=== PATIENT | male | born 1940 | race Caucasian/White ===

== ENCOUNTER 2018-03-16 15:42 | Inpatient (IN) | payer MEDICARE ==
[2018-03-16 15:42] VITALS: PULSE 88
[2018-03-16 16:49] LABS: BASO # 0.1 K/uL (0.0-0.2); EOS # 0.4 K/uL (0.0-0.7); EOS % 4.3 % (0.0-4.0); HEMOGLOBIN 13.1 g/dL (12.0-18.0); LYMPH # 2.1 K/uL (1.0-4.3); LYMPH % 23.9 % (20.0-40.0); MEAN CELL VOLUME 73.5 fL (80.0-94.0); MEAN CORPUSCULAR HEMOGLOBIN 24.7 pg (27.0-31.0); MEAN CORPUSCULAR HGB CONC 33.6 g/dL (33.0-37.0); MEAN PLATELET VOLUME 8.8 fL (7.2-11.7); MONO # 0.7 K/uL (0.0-0.8); NEUT # 5.4 K/uL (1.8-7.0); NEUT % 62.8 % (50.0-75.0); NRBC % 0.1 % (0.0-2.0); RBC 5.31 Mil/uL (4.40-5.90); RED CELL DISTRIBUTION WIDTH 18.7 % (11.5-14.5); WHITE BLOOD COUNT 8.6 K/uL (4.8-10.8)
[2018-03-16 17:01] LABS: ALB/GLOB RATIO 0.9 (1.0-2.1); ALBUMIN 4.3 g/dL (3.5-5.0); CALCIUM 9.4 mg/dl (8.6-10.4)
[2018-03-16 17:03] LABS: INR 1.1; PROTHROMBIN TIME 12.3 SECONDS (9.7-12.2)
[2018-03-16 17:20] LABS: TROPONIN I 0.133 ng/mL (0.00-0.120)
[2018-03-16] MEDS ORDERED: Enoxaparin 40 mg Syringe SC STA (17:22)
[2018-03-16] MEDS ORDERED: Aspirin 325 mg EC Tablets PO STA (17:26)
--- NOTE | 2018-03-16 17:28 | C.PDOC ---
History Of Present Illness 77 y/o male presents to the ER with complaining of failure to thrive at home. Patient has been referred by his PMD, Dr. Neena Constantino. Patient states hat he has a dry, non-productive cough. He feels weak and tired and he is not sleeping well. Time Seen by Provider: 03/16/18 16:10 Chief Complaint (Nursing): Flu-like Symptoms History Per: Patient History/Exam Limitations: no limitations Onset/Duration Of Symptoms: Days Current Symptoms Are (Timing): Still Present Severity: Moderate Past Medical History Reviewed: Historical Data, Nursing Documentation, Vital Signs Vital Signs: Last Vital Signs Temp 98.6 F 03/16/18 18:27 Pulse 60 03/16/18 18:27 Resp 16 03/16/18 18:27 BP 129/78 03/16/18 18:27 Pulse Ox 98 03/16/18 18:27 - Medical History PMH: Gastrointestinal Ulcer, HTN Denies: Chronic Kidney Disease Surgical History: Coronary Stent Denies: Pacemaker - [facility] Procedures CORONAR ARTERIOGR-2 CATH (06/17/12) EXCISION OF DESCENDING COLON, ENDO, DIAGN (02/02/16) EXCISION OF STOMACH, ENDO, DIAGN (02/02/16) INSERTION OF ONE VASCULAR STENT (06/17/12) INSRT OF DRUG-ELUTING CORON ARTERY STENTS(S) (06/17/12) PERCUTANEOUS TRANSLUMINAL CORONARY ANGIOPLASTY [PTCA] (06/17/12) PROCEDURE ON SINGLE VESSEL (06/17/12) RT & LT HEART ANGIOCARD (06/17/12) RT/LEFT HEART CARD CATH (06/17/12) TRANSFUSE NONAUT RED BLOOD CELLS IN PERIPH VEIN, PERC (02/07/16) Family History: States: No Known Family Hx - Social History Hx Alcohol Use: No Hx Substance Use: No - Immunization History Hx Tetanus Toxoid Vaccination: No Hx Influenza Vaccination: Yes (11/2017) Hx Pneumococcal Vaccination: No Review Of Systems Except As Marked, All Systems Reviewed And Found Negative. Constitutional: Positive for: Weakness. Negative for: Fever, Chills Cardiovascular: Negative for: Chest Pain Respiratory: Positive for: Cough. Negative for: Shortness of Breath Physical Exam - Physical Exam Appears: Non-toxic, No Acute Distress, Other (elderly male, appears younger than age) Skin: Normal Color, Warm Head: Atraumatic, Normacephalic Eye(s): bilateral: Normal Inspection Ear(s): Bilateral: Normal Nose: Normal Oral Mucosa: Moist Throat: Normal, No Erythema, No Exudate Neck: Supple Chest: Symmetrical Cardiovascular: Rhythm Regular Respiratory: Normal Breath Sounds, No Rales, No Rhonchi, No Wheezing Gastrointestinal/Abdominal: Normal Exam, Soft, No Tenderness Extremity: Normal ROM, No Pedal Edema Neurological/Psych: Oriented x3, Normal Speech ED Course And Treatment - Laboratory Results Result Diagrams: 03/16/18 16:40 03/16/18 16:40 Lab Interpretation: Abnormal (d-dimer 2900, trop 0.133 H) ECG: Interpreted By Me ECG Rhythm: Sinus Rhythm, R BBB, L BBB ECG Interpretation: No Changes From Prior Rate From EC O2 Sat by Pulse Oximetry: 96 (RA) Pulse Ox Interpretation: Normal - Radiology CXR: Interpreted by Me CXR Interpretation: Yes: No Acute Disease Progress Note: lovenox SQ, ASA Reevaluation Time: 17:26 Reassessment Condition: Improved - Physician Consult Information Outcome Of Conversation: 1630, 1730, d/w Dr. Champ Constantino, ok to admit. Consider VQ scan in pt with elev d-dimer and sob, but creat 1.7 too high for angiography Disposition Doctor Will See Patient In The: Hospital Counseled Patient/Family Regarding: Studies Performed, Diagnosis - Disposition Disposition: HOSPITALIZED Disposition Time: 17:27 Condition: GOOD - Clinical Impression Clinical Impression: Shortness of breath - Scribe Statement The provider has reviewed the documentation as recorded by the Devika Guallpa Provider Attestation: All medical record entries made by the Devika were at my direction and personally dictated by me. I have reviewed the chart and agree that the record accurately reflects my personal performance of the history, physical exam, medical decision making, and the department course for this patient. I have also personally directed, reviewed, and agree with the discharge instructions and disposition.
[2018-03-16] MEDS ORDERED: Enoxaparin 80 mg Syringe ONE (17:38)
--- NOTE | 2018-03-16 17:38 | RAD ---
PROCEDURE: CHEST RADIOGRAPH, 1 VIEW HISTORY: SOB COMPARISON: Chest radiographs 12/17/2015. FINDINGS: LUNGS: Clear. PLEURA: No pneumothorax or pleural fluid seen. Mammillation of the right hemidiaphragm is reiterated. CARDIOVASCULAR: Normal. OSSEOUS STRUCTURES: No significant abnormalities. VISUALIZED UPPER ABDOMEN: Normal. OTHER FINDINGS: None. IMPRESSION: No interval acute cardiopulmonary disease appreciated.
[2018-03-16] MEDS ORDERED: Aspirin 325 mg EC Tablets PO ONE (17:41)
[2018-03-16] MEDS ORDERED: Potassium Chloride 20 mEq ER Tab PO STA ×2 (18:04→21:08)
[2018-03-16] MEDS ORDERED: Potassium Chloride 20 mEq ER Tab PO ONE (18:09)
--- NOTE | 2018-03-16 18:25 | CP.PCM.HP ---
Past Patient History - Infectious Disease Hx of Infectious Diseases: None - Past Medical History & Family History Past Medical History?: Yes - Past Social History Smoking Status: Never Smoked - CARDIAC Hx Hypertension: Yes Hx Pacemaker: No - PULMONARY Hx Respiratory Disorders: No - NEUROLOGICAL Hx Paralysis: No - HEENT Hx HEENT Problems: No - RENAL Hx Chronic Kidney Disease: No - ENDOCRINE/METABOLIC Hx Endocrine Disorders: Yes Hx Diabetes Mellitus Type 2: Yes - HEMATOLOGICAL/ONCOLOGICAL Hx Blood Transfusions: No Hx Blood Transfusion Reaction: No - INTEGUMENTARY Hx Dermatological Problems: No - MUSCULOSKELETAL/RHEUMATOLOGICAL Hx Falls: No - GASTROINTESTINAL Hx Gastrointestinal Disorders: Yes Other/Comment: COLONOSCOPY - GENITOURINARY/GYNECOLOGICAL Hx Genitourinary Disorders: No - PSYCHIATRIC Hx Substance Use: No - SURGICAL HISTORY Hx Coronary Stent: Yes - ANESTHESIA Hx Anesthesia: Yes Hx Anesthesia Reactions: No Hx Malignant Hyperthermia: No Meds Allergies/Adverse Reactions: Allergies Allergy/AdvReac Type Severity Reaction Status Date / Time No Known Allergies Allergy Verified 03/16/18 16:02 Physical Exam - Constitutional Appears: Well - Head Exam Head Exam: ATRAUMATIC, NORMAL INSPECTION, NORMOCEPHALIC - Eye Exam Eye Exam: EOMI, Normal appearance, PERRL Pupil Exam: NORMAL ACCOMODATION, PERRL - ENT Exam ENT Exam: Mucous Membranes Moist, Normal Exam - Neck Exam Neck exam: Positive for: Normal Inspection - Respiratory Exam Respiratory Exam: Decreased Breath Sounds - Cardiovascular Exam Cardiovascular Exam: REGULAR RHYTHM, +S1, +S2 - GI/Abdominal Exam GI & Abdominal Exam: Diminished Bowel Sounds, Soft - Rectal Exam Rectal Exam: Deferred Results - Vital Signs Recent Vital Signs: Last Vital Signs Temp 98 F 03/16/18 16:00 Pulse 61 03/16/18 17:30 Resp 16 03/16/18 17:30 BP 136/81 03/16/18 17:30 Pulse Ox 96 03/16/18 17:32 - Labs Result Diagrams: 03/16/18 16:40 03/16/18 16:40 Labs: Laboratory Results - last 24 hr 03/16/18 03/16/18 03/16/18 16:30 16:40 16:40 WBC 8.6 RBC 5.31 Hgb 13.1 D Hct 39.0 MCV 73.5 L D MCH 24.7 L MCHC 33.6 RDW 18.7 H Plt Count 240 MPV 8.8 Neut % (Auto) 62.8 Lymph % (Auto) 23.9 [place] % (Auto) 8.0 Eos % (Auto) 4.3 H Baso % (Auto) 1.0 Neut # (Auto) 5.4 Lymph # (Auto) 2.1 [place] # (Auto) 0.7 Eos # (Auto) 0.4 Baso # (Auto) 0.1 PT INR APTT D-Dimer, Quantitative Sodium 136 Potassium 2.9 L Chloride 82 L D Carbon Dioxide 38 H Anion Gap 18 BUN 44 H Creatinine 1.7 H Est GFR ( Amer) 47 Est GFR (Non-Af Amer) 39 Random Glucose 283 H Calcium 9.4 Total Bilirubin 0.9 AST 39 ALT 33 Alkaline Phosphatase 58 Troponin I 0.1330 H* NT-Pro-B Natriuret Pep 281 Total Protein 9.1 H Albumin 4.3 Globulin 4.8 H Albumin/Globulin Ratio 0.9 L Influenza Typ A,B (EIA) Negative for flu a/b 03/16/18 16:40 WBC RBC Hgb Hct MCV MCH MCHC RDW Plt Count MPV Neut % (Auto) Lymph % (Auto) [place] % (Auto) Eos % (Auto) Baso % (Auto) Neut # (Auto) Lymph # (Auto) [place] # (Auto) Eos # (Auto) Baso # (Auto) PT 12.3 H INR 1.1 APTT 23 D-Dimer, Quantitative 2927 H Sodium Potassium Chloride Carbon Dioxide Anion Gap BUN Creatinine Est GFR ( Amer) Est GFR (Non-Af Amer) Random Glucose Calcium Total Bilirubin AST ALT Alkaline Phosphatase Troponin I NT-Pro-B Natriuret Pep Total Protein Albumin Globulin Albumin/Globulin Ratio Influenza Typ A,B (EIA)
[2018-03-16 19:56] VITALS: RESP 20
[2018-03-16] MEDS: (Novolog) Insulin Aspart, Recombinant 100 u/ml 10 ml vial SC SCH (22:00)
[2018-03-16] MEDS: Azithromycin 500 MG in Sodium Chloride 0.9% 250 ML IVPB SCH (22:45)
[2018-03-16] MEDS: Pantoprazole 40 mg EC Tab PO SCH (22:45)
[2018-03-17] MEDS: Albuterol-Ipratrop 3 mg / 0.5 (3 ml) UD INH SCH ×4 (01:24→20:16)
[2018-03-17 02:07] LABS: CK-MB 2.67 ng/mL (0.0-3.38)
[2018-03-17 02:09] LABS: TROPONIN I 0.153 ng/mL (0.00-0.120)
[2018-03-17] MEDS: Enoxaparin 80 mg Syringe SC SCH ×2 (05:48→18:16)
--- NOTE | 2018-03-17 08:04 | CP.PCM.CON ---
History of Present Illness - History of Present Illness History of Present Illness: I was asked to see patient by Dr Amrita Contsantino. Patient is a 77 year old male with PMH HTn, hypercholestrolemia, CAD s/p PCI mid LAD in 2011 who presents with weakness. Patient states symptoms began about 2 weeks ago, and are described as worsening fatigue and dsypnea. He was admitted with elevated D-dimer. He denies chest pain. Review of Systems - Constitutional Constitutional: Weakness - EENT Ears: absent: As Per HPI, Decreased Hearing, Ear Discharge, Ear Pain, Tinnitus, Abnormal Hearing, Disequilibrium, Dizziness, Other Nose/Mouth/Throat: absent: As Per HPI, Epistaxis, Nasal Congestion, Nasal Discharge, Nasal Obstruction, Nasal Trauma, Nose Pain, Post Nasal Drip, Sinus Pain, Sinus Pressure, Bleeding Gums, Change in Voice, Dental Pain, Dry Mouth, Dysphagia, Halitosis, Hoarsness, Lip Swelling, Mouth Lesions, Mouth Pain, Odynophagia, Sore Throat, Throat Swelling, Tongue Swelling, Facial Pain, Neck Pain, Neck Mass, Other - Cardiovascular Cardiovascular: Dyspnea - Respiratory Respiratory: absent: As Per HPI, Cough, Dyspnea, Hemoptysis, Dyspnea on Exertion , Wheezing, Snoring, Stridor, Pain on Inspiration, Chest Congestion, Excessive Mucous Production, Change in Mucous Color, Pain with Coughing, Other - Gastrointestinal Gastrointestinal: absent: As Per HPI, Abdominal Pain, Belching, Bloating, Change in Bowel Habits, Change in Stool Character, Coffee Ground Emesis, Constipation, Cramping, Diarrhea, Dyspepsia, Dysphagia, Early Satiety, Excessive Flatus, Fecal Incontinence, Heartburn, Hematemesis, Hematochezia, Loose Stools, Melena, Nausea, Odynophagia, Temesmus, Vomiting, Other - Genitourinary Genitourinary: absent: As Per HPI, Change in Urinary Stream, Difficulty Urinating, Dysuria, Flank Pain, Hematuria, Pyuria, Nocturia, Urinary Incontinence, Urinary Frequency, Urinary Hesitance, Urinary Urgency, Voiding Freq/Small Amts, Freq UTI, Hx Renal/Bladder Calculi, Hx /Renal Surgery, Bladder Distension, Other - Musculoskeletal Musculoskeletal: absent: As Per HPI, Abnormal Gait, Arthralgias, Atrophy, Back Pain, Deformity, Joint Swelling, Limited Range of Motion, Loss of Height, Muscle Cramps, Muscle Weakness, Myalgias, Neck Pain, Numbness, Radiating Pain into Limb, Stiffness, Tingling, Other - Integumentary Integumentary: absent: As Per HPI, Acne, Alopecia, Bleeding Lesions, Change in Hair, Change in Nails, Change in Pigmentation, Changing Lesions, Dry Skin, Erythema, Furuncle, Hirsutism, Lesions, New Lesions, Non-Healing Lesions, Photosensitivity, Pruritus, Rash, Skin Pain, Skin Ulcer, Sores, Striae, Swelling , Unusual Bruising, Wounds, Jaundice, Other - Neurological Neurological: absent: As Per HPI, Abnormal Gait, Abnormal Hearing, Abnormal Movements, Abnormal Speech, Behavioral Changes, Burning Sensations, Confusion, Convulsions, Disequilibrium, Dizziness, Numbness, Focal Weakness, Frequent Falls , Headaches, Lack of Coordination, Loss of Vision, Memory Loss, Paresthesias, Radicular Pain, Restless Legs, Sensory Deficit, Syncope, Tingling, Tremor, Vertigo, Weakness, Other Visual Disturbances, Other - Psychiatric Psychiatric: absent: As Per HPI, Abnormal Sleep Pattern, Anhedonia, Anxiety, Auditory Hallucinations, Behavioral Changes, Change in Appetite, Change in Libido, Confusion, Depression, Difficulty Concentrating, Hallucinations, Homicidal Ideation, Hopelessness, Irritability, Memory Loss, Mood Swings, Panic Attacks, Paranoia, Suicidal Ideation, Visual Hallucinations, Tactile Hallucinations, Other - Endocrine Endocrine: absent: As Per HPI, Change in Body Appearance, Change in Libido, Cold Intolorance, Deepening of Voice, Excessive Sweating, Fatigue, Flushing, Heat Intolorance, Increase in Ring/Shoe/Hat Size, Palpitations, Polydipsia, Polyphagia, Polyuria, Other - Hematologic/Lymphatic Hematologic: absent: As Per HPI, Easy Bleeding, Easy Bruising, Lymphadenopathy, Other Past Patient History - Infectious Disease Hx of Infectious Diseases: None - Past Medical History & Family History Past Medical History?: Yes - Past Social History Smoking Status: Never Smoked - CARDIAC Hx Hypertension: Yes Hx Pacemaker: No - PULMONARY Hx Respiratory Disorders: No - NEUROLOGICAL Hx Paralysis: No - HEENT Hx HEENT Problems: No - RENAL Hx Chronic Kidney Disease: No - ENDOCRINE/METABOLIC Hx Endocrine Disorders: Yes Hx Diabetes Mellitus Type 2: Yes - HEMATOLOGICAL/ONCOLOGICAL Hx Blood Transfusions: No Hx Blood Transfusion Reaction: No - INTEGUMENTARY Hx Dermatological Problems: No - MUSCULOSKELETAL/RHEUMATOLOGICAL Hx Falls: No - GASTROINTESTINAL Hx Gastrointestinal Disorders: Yes Other/Comment: COLONOSCOPY - GENITOURINARY/GYNECOLOGICAL Hx Genitourinary Disorders: No - PSYCHIATRIC Hx Substance Use: No - SURGICAL HISTORY Hx Coronary Stent: Yes - ANESTHESIA Hx Anesthesia: Yes Hx Anesthesia Reactions: No Hx Malignant Hyperthermia: No Meds Allergies/Adverse Reactions: Allergies Allergy/AdvReac Type Severity Reaction Status Date / Time No Known Allergies Allergy Verified 03/16/18 16:02 - Medications Medications: Current Medications Albuterol/Ipratropium (Duoneb 3 Mg/0.5 Mg (3 Ml) Ud) 3 ml INH RQ6 [facility] Last Admin: 03/17/18 07:37 Dose: 3 ml Aspirin (Aspirin) 325 mg PO DAILY [facility] Clopidogrel Bisulfate (Plavix) 75 mg PO DAILY [facility] Enoxaparin Sodium (Lovenox) 70 mg SC Q12H [facility] Last Admin: 03/17/18 05:48 Dose: 70 mg Home Med (Linagliptin [Tradjenta]) 5 mg PO DAILY [facility] Home Med (Meloxicam [Mobic]) 15 mg PO DAILY [facility] Ceftriaxone Sodium 1 gm/ (Sodium Chloride) 100 mls @ 100 mls/hr IVPB DAILY [facility] Azithromycin 500 mg/ Sodium (Chloride) 250 mls @ 250 mls/hr IVPB Q24H [facility] PRN Reason: Protocol Last Admin: 03/16/18 22:45 Dose: 250 mls/hr Insulin Aspart (Novolog) 0 unit SC ACHS [facility] PRN Reason: Protocol Last Admin: 03/16/18 22:00 Dose: Not Given Pantoprazole Sodium (Protonix Ec Tab) 40 mg PO DAILY [facility] Last Admin: 03/16/18 22:45 Dose: 40 mg Repaglinide (Prandin) 1 mg PO TID [facility] Physical Exam - Constitutional Appears: Non-toxic - Head Exam Head Exam: NORMAL INSPECTION - Eye Exam Eye Exam: Normal appearance - ENT Exam ENT Exam: Mucous Membranes Moist - Neck Exam Neck exam: Positive for: Full Rom - Respiratory Exam Respiratory Exam: NORMAL BREATHING PATTERN - Cardiovascular Exam Cardiovascular Exam: REGULAR RHYTHM - GI/Abdominal Exam GI & Abdominal Exam: Normal Bowel Sounds - Rectal Exam Rectal Exam: Deferred - Extremities Exam Extremities exam: Negative for: pedal edema - Back Exam Back exam: NORMAL INSPECTION - Neurological Exam Neurological exam: Alert, Oriented x3 - Psychiatric Exam Psychiatric exam: Normal Affect - Skin Skin Exam: Normal Color Results - Vital Signs Recent Vital Signs: Last Vital Signs Temp 98 F 03/17/18 04:00 Pulse 57 L 03/17/18 04:00 Resp 20 03/17/18 04:00 BP 117/68 03/17/18 04:00 Pulse Ox 97 03/17/18 04:00 - Labs Result Diagrams: 03/16/18 16:40 03/16/18 16:40 Labs: Laboratory Results - last 24 hr 03/16/18 03/16/18 03/16/18 16:30 16:40 16:40 WBC 8.6 RBC 5.31 Hgb 13.1 D Hct 39.0 MCV 73.5 L D MCH 24.7 L MCHC 33.6 RDW 18.7 H Plt Count 240 MPV 8.8 Neut % (Auto) 62.8 Lymph % (Auto) 23.9 [place] % (Auto) 8.0 Eos % (Auto) 4.3 H Baso % (Auto) 1.0 Neut # (Auto) 5.4 Lymph # (Auto) 2.1 [place] # (Auto) 0.7 Eos # (Auto) 0.4 Baso # (Auto) 0.1 PT INR APTT D-Dimer, Quantitative Sodium 136 Potassium 2.9 L Chloride 82 L D Carbon Dioxide 38 H Anion Gap 18 BUN 44 H Creatinine 1.7 H Est GFR ( Amer) 47 Est GFR (Non-Af Amer) 39 POC Glucose (mg/dL) Random Glucose 283 H Calcium 9.4 Total Bilirubin 0.9 AST 39 ALT 33 Alkaline Phosphatase 58 Total Creatine Kinase CK-MB (Mass) Troponin I 0.1330 H* NT-Pro-B Natriuret Pep 281 Total Protein 9.1 H Albumin 4.3 Globulin 4.8 H Albumin/Globulin Ratio 0.9 L Influenza Typ A,B (EIA) Negative for flu a/b 03/16/18 03/16/18 03/17/18 16:40 21:13 01:13 WBC RBC Hgb Hct MCV MCH MCHC RDW Plt Count MPV Neut % (Auto) Lymph % (Auto) [place] % (Auto) Eos % (Auto) Baso % (Auto) Neut # (Auto) Lymph # (Auto) [place] # (Auto) Eos # (Auto) Baso # (Auto) PT 12.3 H INR 1.1 APTT 23 D-Dimer, Quantitative 2927 H Sodium Potassium Chloride Carbon Dioxide Anion Gap BUN Creatinine Est GFR ( Amer) Est GFR (Non-Af Amer) POC Glucose (mg/dL) 261 H Random Glucose Calcium Total Bilirubin AST ALT Alkaline Phosphatase Total Creatine Kinase 119 CK-MB (Mass) 2.67 Troponin I 0.1530 H* NT-Pro-B Natriuret Pep Total Protein Albumin Globulin Albumin/Globulin Ratio Influenza Typ A,B (EIA) 03/17/18 06:40 WBC RBC Hgb Hct MCV MCH MCHC RDW Plt Count MPV Neut % (Auto) Lymph % (Auto) [place] % (Auto) Eos % (Auto) Baso % (Auto) Neut # (Auto) Lymph # (Auto) [place] # (Auto) Eos # (Auto) Baso # (Auto) PT INR APTT D-Dimer, Quantitative Sodium Potassium Chloride Carbon Dioxide Anion Gap BUN Creatinine Est GFR ( Amer) Est GFR (Non-Af Amer) POC Glucose (mg/dL) 200 H Random Glucose Calcium Total Bilirubin AST ALT Alkaline Phosphatase Total Creatine Kinase CK-MB (Mass) Troponin I NT-Pro-B Natriuret Pep Total Protein Albumin Globulin Albumin/Globulin Ratio Influenza Typ A,B (EIA) - EKG Data EKG Interpreted by: Myself EKG shows normal: Sinus rhythm Assessment & Plan (1) CAD (coronary artery disease) Assessment and Plan: patient has a history of CAD with LAD stent. he will require evaluation of ventricular function. will order echocardiogram. ASA 81 mg daily. Status: Acute (2) HTN (hypertension) Assessment and Plan: blood pressure control Status: Acute
[2018-03-17] MEDS: (Novolog) Insulin Aspart, Recombinant 100 u/ml 10 ml vial SC SCH ×4 (08:27→21:30)
--- NOTE | 2018-03-17 09:36 | CP.PCM.CON ---
History of Present Illness - History of Present Illness History of Present Illness: 77 YO MALE WITH A HX HTN, CAD+STENT, HYPERLIPIDEMIA, OBESITY, DM, COPD, ADM 03/16 WITH INCREASED MOD SOB WITH MIN EXERTION X 2 WKS., +COUGH WITH +WHITE SPUTUM., NO FEVER., NO CP., RAN OUT OF INHALER., NO SINUSITIS., NO GERD. NO HX WENDY. +WT LOSS ON DIET., ~20 LBS. Review of Systems - Review of Systems All systems: reviewed and no additional remarkable complaints except - Constitutional Constitutional: Weight Loss - EENT Eyes: absent: Change in Vision Nose/Mouth/Throat: absent: Nasal Congestion, Sinus Pain, Sinus Pressure - Cardiovascular Cardiovascular: absent: Chest Pain - Respiratory Respiratory: Cough, Dyspnea, Dyspnea on Exertion, Chest Congestion - Gastrointestinal Gastrointestinal: absent: Nausea, Vomiting - Genitourinary Genitourinary: absent: Dysuria - Integumentary Integumentary: absent: Rash - Neurological Neurological: absent: Focal Weakness, Syncope - Psychiatric Psychiatric: absent: Change in Appetite, Confusion - Endocrine Endocrine: absent: Polyuria - Hematologic/Lymphatic Hematologic: absent: Easy Bruising Past Patient History - Infectious Disease Hx of Infectious Diseases: None - Past Medical History & Family History Past Medical History?: Yes Past Family History: Reviewed and not pertinent - Past Social History Smoking Status: Never Smoked Chewing Tobacco Use: No Cigar Use: No Alcohol: None Drugs: Denies - CARDIAC Hx Cardiac Disorders: Yes Hx Hypertension: Yes Hx Pacemaker: No - PULMONARY Hx Respiratory Disorders: Yes Hx Chronic Obstructive Pulmonary Disease (COPD): Yes Hx Sleep Apnea: No - NEUROLOGICAL Hx Neurological Disorder: No Hx Paralysis: No - HEENT Hx HEENT Problems: No - RENAL Hx Chronic Kidney Disease: No - ENDOCRINE/METABOLIC Hx Endocrine Disorders: Yes Hx Diabetes Mellitus Type 2: Yes - HEMATOLOGICAL/ONCOLOGICAL Hx Blood Transfusions: No Hx Blood Transfusion Reaction: No - INTEGUMENTARY Hx Dermatological Problems: No - MUSCULOSKELETAL/RHEUMATOLOGICAL Hx Falls: No - GASTROINTESTINAL Hx Gastrointestinal Disorders: Yes Other/Comment: COLONOSCOPY - GENITOURINARY/GYNECOLOGICAL Hx Genitourinary Disorders: No - PSYCHIATRIC Hx Psychophysiologic Disorder: No Hx Substance Use: No - SURGICAL HISTORY Hx Surgeries: No Hx Coronary Stent: Yes - ANESTHESIA Hx Anesthesia: Yes Hx Anesthesia Reactions: No Hx Malignant Hyperthermia: No Meds Allergies/Adverse Reactions: Allergies Allergy/AdvReac Type Severity Reaction Status Date / Time No Known Allergies Allergy Verified 03/16/18 16:02 - Medications Medications: Current Medications Albuterol/Ipratropium (Duoneb 3 Mg/0.5 Mg (3 Ml) Ud) 3 ml INH RQ6 [facility] Last Admin: 03/17/18 07:37 Dose: 3 ml Aspirin (Aspirin) 325 mg PO DAILY [facility] Clopidogrel Bisulfate (Plavix) 75 mg PO DAILY [facility] Enoxaparin Sodium (Lovenox) 70 mg SC Q12H [facility] Last Admin: 03/17/18 05:48 Dose: 70 mg Home Med (Linagliptin [Tradjenta]) 5 mg PO DAILY [facility] Home Med (Meloxicam [Mobic]) 15 mg PO DAILY [facility] Ceftriaxone Sodium 1 gm/ (Sodium Chloride) 100 mls @ 100 mls/hr IVPB DAILY [facility] Azithromycin 500 mg/ Sodium (Chloride) 250 mls @ 250 mls/hr IVPB Q24H [facility] PRN Reason: Protocol Last Admin: 03/16/18 22:45 Dose: 250 mls/hr Insulin Aspart (Novolog) 0 unit SC ACHS [facility] PRN Reason: Protocol Last Admin: 03/17/18 08:27 Dose: 2 unit Pantoprazole Sodium (Protonix Ec Tab) 40 mg PO DAILY [facility] Last Admin: 03/16/18 22:45 Dose: 40 mg Repaglinide (Prandin) 1 mg PO TID [facility] Physical Exam - Constitutional Appears: Non-toxic - Head Exam Head Exam: ATRAUMATIC, NORMOCEPHALIC - Eye Exam Eye Exam: EOMI, Normal appearance - ENT Exam ENT Exam: Mucous Membranes Moist - Neck Exam Neck exam: Positive for: Normal Inspection. Negative for: Tenderness - Respiratory Exam Respiratory Exam: Decreased Breath Sounds. absent: Accessory Muscle Use Additional comments: FEW BASILAR RHONCHI BILAT. - Cardiovascular Exam Cardiovascular Exam: RRR, +S1, +S2 - GI/Abdominal Exam GI & Abdominal Exam: Soft. absent: Tenderness Additional comments: OBESE - Rectal Exam Rectal Exam: Deferred - Extremities Exam Extremities exam: Negative for: calf tenderness, pedal edema - Back Exam Back exam: absent: CVA tenderness (L), CVA tenderness (R) - Neurological Exam Neurological exam: Alert, CN II-XII Intact, Oriented x3 - Psychiatric Exam Psychiatric exam: Normal Mood Results - Vital Signs Recent Vital Signs: Last Vital Signs Temp 98.2 F 03/17/18 08:24 Pulse 64 03/17/18 08:39 Resp 20 03/17/18 08:24 BP 116/73 03/17/18 08:24 Pulse Ox 98 03/17/18 08:24 - Labs Result Diagrams: 03/16/18 16:40 03/16/18 16:40 Labs: Laboratory Results - last 24 hr 03/16/18 03/16/18 03/16/18 16:30 16:40 16:40 WBC 8.6 RBC 5.31 Hgb 13.1 D Hct 39.0 MCV 73.5 L D MCH 24.7 L MCHC 33.6 RDW 18.7 H Plt Count 240 MPV 8.8 Neut % (Auto) 62.8 Lymph % (Auto) 23.9 Meeker % (Auto) 8.0 Eos % (Auto) 4.3 H Baso % (Auto) 1.0 Neut # (Auto) 5.4 Lymph # (Auto) 2.1 Meeker # (Auto) 0.7 Eos # (Auto) 0.4 Baso # (Auto) 0.1 PT INR APTT D-Dimer, Quantitative Sodium 136 Potassium 2.9 L Chloride 82 L D Carbon Dioxide 38 H Anion Gap 18 BUN 44 H Creatinine 1.7 H Est GFR ( Amer) 47 Est GFR (Non-Af Amer) 39 POC Glucose (mg/dL) Random Glucose 283 H Calcium 9.4 Total Bilirubin 0.9 AST 39 ALT 33 Alkaline Phosphatase 58 Total Creatine Kinase CK-MB (Mass) Troponin I 0.1330 H* NT-Pro-B Natriuret Pep 281 Total Protein 9.1 H Albumin 4.3 Globulin 4.8 H Albumin/Globulin Ratio 0.9 L Influenza Typ A,B (EIA) Negative for flu a/b 03/16/18 03/16/18 03/17/18 16:40 21:13 01:13 WBC RBC Hgb Hct MCV MCH MCHC RDW Plt Count MPV Neut % (Auto) Lymph % (Auto) Meeker % (Auto) Eos % (Auto) Baso % (Auto) Neut # (Auto) Lymph # (Auto) Meeker # (Auto) Eos # (Auto) Baso # (Auto) PT 12.3 H INR 1.1 APTT 23 D-Dimer, Quantitative 2927 H Sodium Potassium Chloride Carbon Dioxide Anion Gap BUN Creatinine Est GFR ( Amer) Est GFR (Non-Af Amer) POC Glucose (mg/dL) 261 H Random Glucose Calcium Total Bilirubin AST ALT Alkaline Phosphatase Total Creatine Kinase 119 CK-MB (Mass) 2.67 Troponin I 0.1530 H* NT-Pro-B Natriuret Pep Total Protein Albumin Globulin Albumin/Globulin Ratio Influenza Typ A,B (EIA) 03/17/18 06:40 WBC RBC Hgb Hct MCV MCH MCHC RDW Plt Count MPV Neut % (Auto) Lymph % (Auto) Meeker % (Auto) Eos % (Auto) Baso % (Auto) Neut # (Auto) Lymph # (Auto) [place] # (Auto) Eos # (Auto) Baso # (Auto) PT INR APTT D-Dimer, Quantitative Sodium Potassium Chloride Carbon Dioxide Anion Gap BUN Creatinine Est GFR ( Amer) Est GFR (Non-Af Amer) POC Glucose (mg/dL) 200 H Random Glucose Calcium Total Bilirubin AST ALT Alkaline Phosphatase Total Creatine Kinase CK-MB (Mass) Troponin I NT-Pro-B Natriuret Pep Total Protein Albumin Globulin Albumin/Globulin Ratio Influenza Typ A,B (EIA) Assessment & Plan (1) Acute kidney failure Status: Acute (2) Hyperlipidemia Status: Acute (3) CAD (coronary artery disease) Status: Acute (4) HTN (hypertension) Status: Acute (5) Shortness of breath Status: Acute (6) COPD (chronic obstructive pulmonary disease) with emphysema Status: Chronic - Assessment and Plan (Free Text) Assessment: 77 YO MALE WITH A HX MULT MED PROBS., ADM WITH DYSPNEA, R/O ACS., COPD EXAC,. + D -DIMER ELEVATION NOTED., V/Q SCAN PENDING., CONT NEB BD., MONITOR O2 SAT. CONT PULM TOILET., EMPIRIC AB, PENDING CULT. CHECK ECHO., CARDIO EVAL NOTED., PFT'S WHEN STABLE., HIGH RISK WENDY, CHECK PSG OUTPT., DVT PROPHYLAXIS., PROG GUARDED., DISCUSSED WITH STAFF AT LENGTH.
[2018-03-17] MEDS ORDERED: Home Med 1 UNIT (Linagliptin [Tradjenta] 5 MG) PO SCH (10:00)
[2018-03-17] MEDS ORDERED: Home Med 1 UNIT (Meloxicam [Mobic] 15 MG) PO SCH (10:00)
[2018-03-17] MEDS: Pantoprazole 40 mg EC Tab PO SCH (10:29)
--- NOTE | 2018-03-17 12:44 | NM ---
COMPARISON: March 16, 2018. TECHNIQUE: 10.4 mCi technetium 99-m Xe-133 Gas. 3.9 mCI technetium 99-m MAA administered intravenously. FINDINGS: VENTILATION COMPONENT: Heterogeneous ventilation, retention of radionuclide consistent with COPD/ air trapping PERFUSION COMPONENT: Heterogeneous profusion IMPRESSION: Low probability ventilation perfusion scan for pulmonary embolism.
[2018-03-17 14:22] LABS: CALCIUM 8.9 mg/dl (8.6-10.4)
[2018-03-17 14:41] LABS: CK-MB 1.74 ng/mL (0.0-3.38); TROPONIN I 0.097 ng/mL (0.00-0.120)
[2018-03-17] MEDS ORDERED: Potassium Chloride 20 mEq ER Tab PO STA ×2 (15:44→17:42)
--- NOTE | 2018-03-17 17:30 | CP.PCM.PN ---
Subjective - Date & Time of Evaluation Date of Evaluation: 03/17/18 Time of Evaluation: 11:20 - Subjective Subjective: clinically same Objective - Vital Signs/Intake and Output Vital Signs (last 24 hours): Temp Pulse Resp BP Pulse Ox 97.8 F 71 20 107/65 95 03/17/18 15:15 03/17/18 15:15 03/17/18 15:15 03/17/18 15:15 03/17/18 15:15 Intake and Output: 03/17/18 03/17/18 06:59 18:59 Intake Total 200 Output Total 800 Balance -800 200 - Medications Medications: Current Medications Albuterol/Ipratropium (Duoneb 3 Mg/0.5 Mg (3 Ml) Ud) 3 ml INH RQ6 [facility] Last Admin: 03/17/18 13:20 Dose: 3 ml Aspirin (Aspirin) 325 mg PO DAILY [facility] Last Admin: 03/17/18 10:29 Dose: 325 mg Clopidogrel Bisulfate (Plavix) 75 mg PO DAILY [facility] Last Admin: 03/17/18 10:29 Dose: 75 mg Enoxaparin Sodium (Lovenox) 70 mg SC Q12H [facility] Last Admin: 03/17/18 05:48 Dose: 70 mg Home Med (Linagliptin [Tradjenta]) 5 mg PO DAILY [facility] Home Med (Meloxicam [Mobic]) 15 mg PO DAILY [facility] Ceftriaxone Sodium 1 gm/ (Sodium Chloride) 100 mls @ 100 mls/hr IVPB DAILY [facility] Last Admin: 03/17/18 10:29 Dose: 100 mls/hr Azithromycin 500 mg/ Sodium (Chloride) 250 mls @ 250 mls/hr IVPB Q24H [facility] PRN Reason: Protocol Last Admin: 03/16/18 22:45 Dose: 250 mls/hr Potassium Chloride (Potassium Chloride 20 Meq/100 Ml) 20 meq in 100 mls @ 50 mls/hr IVPB Q2 [facility] Stop: 03/17/18 19:59 Insulin Aspart (Novolog) 0 unit SC ACHS [facility] PRN Reason: Protocol Last Admin: 03/17/18 12:17 Dose: 4 unit Pantoprazole Sodium (Protonix Ec Tab) 40 mg PO DAILY [facility] Last Admin: 03/17/18 10:29 Dose: 40 mg Repaglinide (Prandin) 1 mg PO TID [facility] Last Admin: 03/17/18 13:42 Dose: 1 mg - Labs Labs: 03/16/18 16:40 03/17/18 13:57 PT 12.3 SECONDS (9.7-12.2) H 03/16/18 16:40 INR 1.1 03/16/18 16:40 APTT 23 SECONDS (21-34) 03/16/18 16:40 - Constitutional Appears: Well - Head Exam Head Exam: ATRAUMATIC, NORMAL INSPECTION, NORMOCEPHALIC - Eye Exam Eye Exam: EOMI, Normal appearance, PERRL Pupil Exam: NORMAL ACCOMODATION, PERRL - ENT Exam ENT Exam: Mucous Membranes Moist, Normal Exam - Neck Exam Neck Exam: Full ROM, Normal Inspection. absent: Lymphadenopathy - Respiratory Exam Respiratory Exam: Decreased Breath Sounds - Cardiovascular Exam Cardiovascular Exam: REGULAR RHYTHM, +S1, +S2 - GI/Abdominal Exam GI & Abdominal Exam: Soft, Diminished Bowel Sounds - Rectal Exam Rectal Exam: Deferred
--- NOTE | 2018-03-17 18:19 | CARD ---
APPROVED REPORT EXAM: Two-dimensional and M-mode echocardiogram with Doppler and color Doppler. INDICATION Dyspnea Non STEMI COPD Surgery/Intervention Pacemaker: RISK FACTORS Hypertension 2D DIMENSIONS IVSd1.5 (0.7-1.1cm)LVDd3.5 (3.9-5.9cm) PWd1.3 (0.7-1.1cm)LVDs2.3 (2.5-4.0cm) FS (%) 35.5 %LVEF (%)66.0 (>50%) M-Mode DIMENSIONS Left Atrium (MM)3.72 (2.5-4.0cm)Aortic Root4.25 (2.2-3.7cm) Aortic Cusp Exc.2.07 (1.5-2.0cm) Mitral Valve MV E Pvvjiezx42.7cm/sMV A Tbmbjlnf561.1cm/sE/A ratio0.6 TDI E/Lateral E'0.0E/Medial E'0.0 Tricuspid Valve TR Peak [id number]/sTR Peak Gr.16mmHg LEFT VENTRICLE There is mild to moderate concentric left ventricular hypertrophy. Left ventricle systolic function is normal. The Ejection Fraction is 65-70%. There is normal LV segmental wall motion. The left ventricular diastolic function is abnormal- Grade I-abnormal relaxation pattern. No left ventricle thrombus noted on this study. RIGHT VENTRICLE The right ventricle is normal size. The right ventricular systolic function is normal. ATRIA The left atrium size is normal. The right atrium size is normal. AORTIC VALVE The aortic valve is mildly sclerotic. The aortic valve is trileaflet. No aortic regurgitation is present. There is no aortic valvular stenosis. There is no aortic valvular vegetation. MITRAL VALVE Mitral annular calcification is mild to moderate. There is no evidence of mitral valve prolapse. There is no mitral valve stenosis. There is no mitral valve regurgitation noted. TRICUSPID VALVE The tricuspid valve is normal in structure. There is trace to mild tricuspid regurgitation. Right ventricular systolic pressure is estimated at less than 30 mmHg. There is no pulmonary hypertension. There is no tricuspid valve prolapse or vegetation. There is no tricuspid valve stenosis. PULMONIC VALVE The pulmonic valve is not well visualized. There is no pulmonic valvular regurgitation. GREAT VESSELS There is mild to moderate aortic root dilatation. <Conclusion> There is mild to moderate concentric left ventricular hypertrophy. Left ventricle systolic function is normal. The Ejection Fraction is 65-70%. The left ventricular diastolic function is abnormal- Grade I-abnormal relaxation pattern. The right ventricle is normal size. The right ventricular systolic function is normal. The left atrium size is normal. The right atrium size is normal. There is trace to mild tricuspid regurgitation. There is no pulmonary hypertension.
[2018-03-17] MEDS: Azithromycin 500 MG in Sodium Chloride 0.9% 250 ML IVPB SCH (23:09)
--- NOTE | 2018-03-18 00:03 | CARD ---
APPROVED REPORT EKG Measurement Heart [id number] <Conclusion> Sinus rhythm with 1st degree AV block Right bundle branch block Left posterior fascicular block Bifascicular block Inferior infarct, age undetermined Abnormal ECG
[2018-03-18] MEDS: Albuterol-Ipratrop 3 mg / 0.5 (3 ml) UD INH SCH ×4 (01:23→19:08)
[2018-03-18] MEDS: Enoxaparin 80 mg Syringe SC SCH (05:35)
[2018-03-18] MEDS: (Novolog) Insulin Aspart, Recombinant 100 u/ml 10 ml vial SC SCH ×4 (08:36→22:49)
--- NOTE | 2018-03-18 08:48 | VASCLAB ---
PROCEDURE: Lower Extremity Venous Duplex Exam. HISTORY: R/O dvt PRIORS: None. TECHNIQUE: Bilateral common femoral, femoral, popliteal and posterior tibial, peroneal and great saphenous veins were evaluated. Flow was assessed with color Doppler, compressibility, assessment of phasic flow and augmentation response. Report prepared by Cornelio Ya, LYDIA, RVT FINDINGS: RIGHT: 1. Common Femoral Vein: 1.1. Compressibility - Fully compressible: Thrombus - None : Flow - Phasic: Augmentation -Normal: Reflux - None. 2. Femoral Vein: 2.1. Compressibility - Fully compressible: Thrombus - None : Flow - Phasic: Augmentation -Normal: Reflux - None. 3. Popliteal Vein: 3.1. Compressibility - Fully compressible: Thrombus - None : Flow - Phasic: Augmentation -Normal: Reflux - None. 4. Posterior Tibial Vein: 4.1. Compressibility - Fully compressible: Thrombus - None: Flow - Phasic: Augmentation -Normal: Reflux - None. 5. Peroneal Vein: 5.1. Compressibility - Fully compressible: Thrombus - None: Flow - Phasic: Augmentation -Normal: Reflux - None. 6. Great Saphenous Vein: 6.1. Compressibility - Fully compressible: Thrombus - None: Flow - Phasic: Augmentation - Normal: Reflux - None. LEFT: 1. Common Femoral Vein: 1.1. Compressibility - Fully compressible: Thrombus - None: Flow - Phasic: Augmentation -Normal: Reflux - None. 2. Femoral Vein: 2.1. Compressibility - Fully compressible: Thrombus - None: Flow - Phasic: Augmentation -Normal: Reflux - None. 3. Popliteal Vein: 3.1. Compressibility - Fully compressible: Thrombus - None : Flow - Phasic: Augmentation -Normal: Reflux - None. 4. Posterior Tibial Vein: 4.1. Compressibility - Fully compressible: Thrombus - None: Flow - Phasic: Augmentation -Normal: Reflux - None. 5. Peroneal Vein: 5.1. Compressibility - Fully compressible: Thrombus - None: Flow - Phasic: Augmentation -Normal: Reflux - None. 6. Great Saphenous Vein: 6.1. Compressibility - Fully compressible: Thrombus - None: Flow - Phasic: Augmentation - Normal: Reflux - None. OTHER FINDINGS: Right: None significant. Left: None significant. IMPRESSION: Right: No evidence of deep or superficial vein thrombosis of the right lower extremity. Normal valve function noted of the right side. Left: No evidence of deep or superficial vein thrombosis of the left lower extremity. Normal valve function noted of the left side.
[2018-03-18 08:50] LABS: CALCIUM 8.7 mg/dl (8.6-10.4)
[2018-03-18 10:17] LABS: BASO % 0.5 % (0.0-2.0); EOS # 0.3 K/uL (0.0-0.7); EOS % 3.7 % (0.0-4.0); HEMOGLOBIN 11.2 g/dL (12.0-18.0); LYMPH # 1.8 K/uL (1.0-4.3); LYMPH % 22.9 % (20.0-40.0); MEAN CORPUSCULAR HEMOGLOBIN 25.6 pg (27.0-31.0); MEAN CORPUSCULAR HGB CONC 34.1 g/dL (33.0-37.0); MEAN PLATELET VOLUME 8.8 fL (7.2-11.7); MONO # 0.6 K/uL (0.0-0.8); MONO % 7.1 % (0.0-10.0); NEUT # 5.2 K/uL (1.8-7.0); NEUT % 65.8 % (50.0-75.0); RBC 4.39 Mil/uL (4.40-5.90); RED CELL DISTRIBUTION WIDTH 19.1 % (11.5-14.5); WHITE BLOOD COUNT 7.9 K/uL (4.8-10.8)
[2018-03-18 10:25] LABS: ALB/GLOB RATIO 0.9 (1.0-2.1); ALBUMIN 3.4 g/dL (3.5-5.0); BILIRUBIN,DIRECT 0.5 mg/dL (0.0-0.4)
[2018-03-18] MEDS: Pantoprazole 40 mg EC Tab PO SCH (10:42)
[2018-03-18] MEDS ORDERED: Potassium Chloride 20 mEq ER Tab PO STA ×2 (11:31→13:39)
--- NOTE | 2018-03-18 12:03 | CP.PCM.PN ---
Subjective - Date & Time of Evaluation Date of Evaluation: 03/18/18 Time of Evaluation: 11:59 - Subjective Subjective: PT ALERT, LESS COUGH , LESS SOB., AMBULATED., ROS; OTHERWISE NEG Objective - Vital Signs/Intake and Output Vital Signs (last 24 hours): Temp Pulse Resp BP Pulse Ox 98.3 F 57 L 20 123/69 96 03/18/18 08:32 03/18/18 08:32 03/18/18 08:32 03/18/18 08:32 03/18/18 08:32 - Medications Medications: Current Medications Albuterol/Ipratropium (Duoneb 3 Mg/0.5 Mg (3 Ml) Ud) 3 ml INH RQ6 [facility] Last Admin: 03/18/18 07:27 Dose: 3 ml Aspirin (Aspirin) 325 mg PO DAILY [facility] Last Admin: 03/18/18 10:42 Dose: 325 mg Clopidogrel Bisulfate (Plavix) 75 mg PO DAILY [facility] Last Admin: 03/18/18 10:42 Dose: 75 mg Enoxaparin Sodium (Lovenox) 70 mg SC Q12H [facility] Last Admin: 03/18/18 05:35 Dose: 70 mg Home Med (Linagliptin [Tradjenta]) 5 mg PO DAILY [facility] Home Med (Meloxicam [Mobic]) 15 mg PO DAILY [facility] Ceftriaxone Sodium 1 gm/ (Sodium Chloride) 100 mls @ 100 mls/hr IVPB DAILY [facility] Last Admin: 03/18/18 10:44 Dose: 100 mls/hr Azithromycin 500 mg/ Sodium (Chloride) 250 mls @ 250 mls/hr IVPB Q24H [facility] PRN Reason: Protocol Last Admin: 03/17/18 23:09 Dose: 250 mls/hr Insulin Aspart (Novolog) 0 unit SC ACHS [facility] PRN Reason: Protocol Last Admin: 03/18/18 08:36 Dose: 3 unit Pantoprazole Sodium (Protonix Ec Tab) 40 mg PO DAILY [facility] Last Admin: 03/18/18 10:42 Dose: 40 mg Repaglinide (Prandin) 1 mg PO TID [facility] Last Admin: 03/18/18 10:43 Dose: 1 mg - Labs Labs: 03/18/18 10:12 03/18/18 08:23 PT 12.3 SECONDS (9.7-12.2) H 03/16/18 16:40 INR 1.1 03/16/18 16:40 APTT 23 SECONDS (21-34) 03/16/18 16:40 - Constitutional Appears: Non-toxic, No Acute Distress - Head Exam Head Exam: ATRAUMATIC, NORMOCEPHALIC - Eye Exam Eye Exam: EOMI, Normal appearance - ENT Exam ENT Exam: Mucous Membranes Moist - Neck Exam Neck Exam: Normal Inspection. absent: Tenderness - Respiratory Exam Respiratory Exam: Decreased Breath Sounds. absent: Wheezes - Cardiovascular Exam Cardiovascular Exam: RRR, +S1, +S2 - GI/Abdominal Exam GI & Abdominal Exam: Soft. absent: Tenderness Additional comments: OBESE - Rectal Exam Rectal Exam: Deferred - Extremities Exam Extremities Exam: absent: Calf Tenderness, Pedal Edema - Back Exam Back Exam: absent: CVA tenderness (L), CVA tenderness (R) - Neurological Exam Neurological Exam: Alert, Awake, CN II-XII Intact, Oriented x3 - Psychiatric Exam Psychiatric exam: Normal Mood - Skin Skin Exam: absent: Rash Assessment and Plan (1) Acute kidney failure Status: Acute (2) Hyperlipidemia Status: Acute (3) CAD (coronary artery disease) Status: Acute (4) HTN (hypertension) Status: Acute (5) Shortness of breath Status: Acute (6) COPD (chronic obstructive pulmonary disease) with emphysema Status: Chronic - Assessment and Plan (Free Text) Assessment: RESP STATUS IMPROVING., CONT NEB BD., MONITOR O2 SAT. CXR REVIEWED., V/Q SCAN REVIEWED., LOW PROB., LE DOPPLER NEG FOR DVT. F/U ECHO. PROG GUARDED., DISCUSSED WITH STAFF AT LENGTH.
--- NOTE | 2018-03-18 13:25 | CP.PCM.PN ---
Subjective - Date & Time of Evaluation Date of Evaluation: 03/18/18 Time of Evaluation: 07:00 - Subjective Subjective: PGY 2 medicine progress note for Dr. Amrita Constantino: Patient was seen and examined at bedside this morning. Patient states he is overall feeling better today. His cough and SOB have increased. He states that he was given potassium through the IV yesterday and he did not want this again today. He is tolerting PO and is about to ambulate with his cane. He was seen walking around the hallways. Patient denied chest pain or weakness today. Objective - Vital Signs/Intake and Output Vital Signs (last 24 hours): Temp Pulse Resp BP Pulse Ox 98.3 F 57 L 20 123/69 96 03/18/18 08:32 03/18/18 08:32 03/18/18 08:32 03/18/18 08:32 03/18/18 08:32 - Medications Medications: Current Medications Albuterol/Ipratropium (Duoneb 3 Mg/0.5 Mg (3 Ml) Ud) 3 ml INH RQ6 [facility] Last Admin: 03/18/18 13:17 Dose: 3 ml Aspirin (Aspirin) 325 mg PO DAILY [facility] Last Admin: 03/18/18 10:42 Dose: 325 mg Clopidogrel Bisulfate (Plavix) 75 mg PO DAILY [facility] Last Admin: 03/18/18 10:42 Dose: 75 mg Enoxaparin Sodium (Lovenox) 70 mg SC Q12H [facility] Last Admin: 03/18/18 05:35 Dose: 70 mg Home Med (Linagliptin [Tradjenta]) 5 mg PO DAILY [facility] Home Med (Meloxicam [Mobic]) 15 mg PO DAILY [facility] Ceftriaxone Sodium 1 gm/ (Sodium Chloride) 100 mls @ 100 mls/hr IVPB DAILY [facility] Last Admin: 03/18/18 10:44 Dose: 100 mls/hr Azithromycin 500 mg/ Sodium (Chloride) 250 mls @ 250 mls/hr IVPB Q24H [facility] PRN Reason: Protocol Last Admin: 03/17/18 23:09 Dose: 250 mls/hr Insulin Aspart (Novolog) 0 unit SC ACHS [facility] PRN Reason: Protocol Last Admin: 03/18/18 08:36 Dose: 3 unit Pantoprazole Sodium (Protonix Ec Tab) 40 mg PO DAILY [facility] Last Admin: 03/18/18 10:42 Dose: 40 mg Repaglinide (Prandin) 1 mg PO TID [facility] Last Admin: 03/18/18 10:43 Dose: 1 mg - Labs Labs: 03/18/18 10:12 03/18/18 08:23 PT 12.3 SECONDS (9.7-12.2) H 03/16/18 16:40 INR 1.1 03/16/18 16:40 APTT 23 SECONDS (21-34) 03/16/18 16:40 - Constitutional Appears: Non-toxic, No Acute Distress - Head Exam Head Exam: ATRAUMATIC, NORMAL INSPECTION - Eye Exam Eye Exam: EOMI Pupil Exam: NORMAL ACCOMODATION - ENT Exam ENT Exam: Mucous Membranes Moist - Respiratory Exam Respiratory Exam: Decreased Breath Sounds, NORMAL BREATHING PATTERN. absent: Accessory Muscle Use, Wheezes, Respiratory Distress - Cardiovascular Exam Cardiovascular Exam: REGULAR RHYTHM, +S1, +S2 - GI/Abdominal Exam GI & Abdominal Exam: Soft, Normal Bowel Sounds. absent: Distended, Firm, Guarding, Tenderness - Extremities Exam Extremities Exam: Normal Inspection. absent: Calf Tenderness - Back Exam Back Exam: NORMAL INSPECTION - Neurological Exam Neurological Exam: Alert, Awake, CN II-XII Intact, Normal Gait, Oriented x3 Neuro motor strength exam: Left Upper Extremity: 5, Right Upper Extremity: 5, Left Lower Extremity: 5, Right Lower Extremity: 5 - Psychiatric Exam Psychiatric exam: Normal Affect, Normal Mood Assessment and Plan - Assessment and Plan (Free Text) Assessment: COPD exacerbation improving, + cough/white sputum Duonebs prn Zithromax and Ceftriaxone IVPB daily monitor [address] Null consulted, help appreciated CAD s/p PCI 2011 ASA 81 mg PO daily Plavix 75mg PO daily Trop mildly elevated on admission Dr. Jerry consulted, help appreciated HTN prn meds BP controlled Elevated Ddimer VQ scan low probability of PE Dopplers negative DM ISS Accuchecks Prandin 1mg PO TID Linagliptin 5mg PO daily Hypokalemia f/u am labs, K and Mg Given 60mg PO supplementation CKD Cr 1.4 GFR 49 Prophylaxis SCDs Lovenox 30mg SC daily Protonix 40mg PO daily All management and orders per Dr. Amrita Constantino.
--- NOTE | 2018-03-18 16:52 | CP.PCM.PN ---
Subjective - Date & Time of Evaluation Date of Evaluation: 03/18/18 Time of Evaluation: 10:40 - Subjective Subjective: clinically same Objective - Vital Signs/Intake and Output Vital Signs (last 24 hours): Temp Pulse Resp BP Pulse Ox 97.6 F 63 20 126/70 96 03/18/18 15:15 03/18/18 15:15 03/18/18 15:15 03/18/18 15:15 03/18/18 15:15 - Medications Medications: Current Medications Albuterol/Ipratropium (Duoneb 3 Mg/0.5 Mg (3 Ml) Ud) 3 ml INH RQ6 [facility] Last Admin: 03/18/18 13:17 Dose: 3 ml Aspirin (Aspirin Chewable) 81 mg PO DAILY [facility] Clopidogrel Bisulfate (Plavix) 75 mg PO DAILY [facility] Last Admin: 03/18/18 10:42 Dose: 75 mg Enoxaparin Sodium (Lovenox) 30 mg SC DAILY [facility] Home Med (Linagliptin [Tradjenta]) 5 mg PO DAILY [facility] Home Med (Meloxicam [Mobic]) 15 mg PO DAILY [facility] Ceftriaxone Sodium 1 gm/ (Sodium Chloride) 100 mls @ 100 mls/hr IVPB DAILY [facility] Last Admin: 03/18/18 10:44 Dose: 100 mls/hr Azithromycin 500 mg/ Sodium (Chloride) 250 mls @ 250 mls/hr IVPB Q24H [facility] PRN Reason: Protocol Last Admin: 03/17/18 23:09 Dose: 250 mls/hr Insulin Aspart (Novolog) 0 unit SC ACHS [facility] PRN Reason: Protocol Last Admin: 03/18/18 13:30 Dose: 4 unit Pantoprazole Sodium (Protonix Ec Tab) 40 mg PO DAILY [facility] Last Admin: 03/18/18 10:42 Dose: 40 mg Repaglinide (Prandin) 1 mg PO TID [facility] Last Admin: 03/18/18 13:30 Dose: 1 mg - Labs Labs: 03/18/18 10:12 03/18/18 08:23 PT 12.3 SECONDS (9.7-12.2) H 03/16/18 16:40 INR 1.1 03/16/18 16:40 APTT 23 SECONDS (21-34) 03/16/18 16:40 - Constitutional Appears: Well - Head Exam Head Exam: ATRAUMATIC, NORMAL INSPECTION, NORMOCEPHALIC - Eye Exam Eye Exam: EOMI, Normal appearance, PERRL Pupil Exam: NORMAL ACCOMODATION, PERRL - ENT Exam ENT Exam: Mucous Membranes Moist, Normal Exam - Neck Exam Neck Exam: Full ROM, Normal Inspection. absent: Lymphadenopathy - Respiratory Exam Respiratory Exam: Decreased Breath Sounds - Cardiovascular Exam Cardiovascular Exam: REGULAR RHYTHM, +S1, +S2 - GI/Abdominal Exam GI & Abdominal Exam: Soft, Diminished Bowel Sounds - Rectal Exam Rectal Exam: Deferred
[2018-03-18 18:23] LABS: URINE BILIRUBIN NEGATIVE (NEGATIVE); URINE BLOOD NEGATIVE (NEGATIVE); URINE CLARITY Clear (Clear); URINE COLOR Yellow (YELLOW); URINE GLUCOSE (UA) 3+ mg/dL (Normal)
[2018-03-18 18:24] LABS: URINE LEUKOCYTE ESTERASE NEG Leu/uL (Negative); URINE PROTEIN NEGATIVE (NEGATIVE); URINE UROBILINOGEN NORMAL mg/dL (0.2-1.0)
[2018-03-18] MEDS: Azithromycin 500 MG in Sodium Chloride 0.9% 250 ML IVPB SCH (23:07)
[2018-03-19] MEDS: Albuterol-Ipratrop 3 mg / 0.5 (3 ml) UD INH SCH ×3 (01:27→13:39)
--- NOTE | 2018-03-19 08:08 | CP.PCM.PN ---
Subjective - Date & Time of Evaluation Date of Evaluation: 03/19/18 Time of Evaluation: 08:05 - Subjective Subjective: patient feels well. no chest pain or dyspnea Objective - Vital Signs/Intake and Output Vital Signs (last 24 hours): Temp Pulse Resp BP Pulse Ox 98.1 F 67 20 116/74 97 03/18/18 23:50 03/19/18 00:04 03/18/18 23:50 03/18/18 23:50 03/18/18 23:50 - Medications Medications: Current Medications Albuterol/Ipratropium (Duoneb 3 Mg/0.5 Mg (3 Ml) Ud) 3 ml INH RQ6 [facility] Last Admin: 03/19/18 07:35 Dose: 3 ml Aspirin (Aspirin Chewable) 81 mg PO DAILY [facility] Clopidogrel Bisulfate (Plavix) 75 mg PO DAILY [facility] Last Admin: 03/18/18 10:42 Dose: 75 mg Enoxaparin Sodium (Lovenox) 30 mg SC DAILY [facility] Home Med (Linagliptin [Tradjenta]) 5 mg PO DAILY [facility] Home Med (Meloxicam [Mobic]) 15 mg PO DAILY [facility] Ceftriaxone Sodium 1 gm/ (Sodium Chloride) 100 mls @ 100 mls/hr IVPB DAILY [facility] Last Admin: 03/18/18 10:44 Dose: 100 mls/hr Azithromycin 500 mg/ Sodium (Chloride) 250 mls @ 250 mls/hr IVPB Q24H [facility] PRN Reason: Protocol Last Admin: 03/18/18 23:07 Dose: 250 mls/hr Insulin Aspart (Novolog) 0 unit SC ACHS [facility] PRN Reason: Protocol Last Admin: 03/18/18 22:49 Dose: Not Given Pantoprazole Sodium (Protonix Ec Tab) 40 mg PO DAILY [facility] Last Admin: 03/18/18 10:42 Dose: 40 mg Repaglinide (Prandin) 1 mg PO TID [facility] Last Admin: 03/18/18 18:34 Dose: 1 mg - Labs Labs: 03/18/18 10:12 03/18/18 08:23 PT 12.3 SECONDS (9.7-12.2) H 03/16/18 16:40 INR 1.1 03/16/18 16:40 APTT 23 SECONDS (21-34) 03/16/18 16:40 - Constitutional Appears: Non-toxic - Head Exam Head Exam: NORMAL INSPECTION - Eye Exam Eye Exam: Normal appearance - Neck Exam Neck Exam: Full ROM - Respiratory Exam Respiratory Exam: Decreased Breath Sounds - Cardiovascular Exam Cardiovascular Exam: REGULAR RHYTHM - GI/Abdominal Exam GI & Abdominal Exam: Normal Bowel Sounds - Rectal Exam Rectal Exam: Deferred - Back Exam Back Exam: CVA tenderness (R), NORMAL INSPECTION - Neurological Exam Neurological Exam: Alert - Psychiatric Exam Psychiatric exam: Normal Affect - Skin Skin Exam: Normal Color Assessment and Plan (1) CAD (coronary artery disease) Assessment & Plan: stable CAD. The elevated troponin is not due to ACS. recommend medical therapy. stable for d/c. Status: Acute (2) HTN (hypertension) Status: Acute
[2018-03-19] MEDS: (Novolog) Insulin Aspart, Recombinant 100 u/ml 10 ml vial SC SCH ×2 (08:12→12:06)
[2018-03-19 08:49] VITALS: BP 138/74; PULSE 65; TEMP 97.5; O2SAT 95
[2018-03-19] MEDS ORDERED: Enoxaparin 30 mg Syringe SC SCH (10:00)
[2018-03-19] MEDS: Pantoprazole 40 mg EC Tab PO SCH (10:16)
--- NOTE | 2018-03-19 11:34 | CP.PCM.PN ---
Subjective - Date & Time of Evaluation Date of Evaluation: 03/19/18 Time of Evaluation: 11:33 - Subjective Subjective: PGY2 progress note for Dr. Constantino Pt seen an dexamined at bedside. No acute events overnight. pt is sitting comfortably. Denies having any SOB, dyspnea on exertion, CP, abd pain, N/V/D/C , F/C. Objective - Vital Signs/Intake and Output Vital Signs (last 24 hours): Temp Pulse Resp BP Pulse Ox 97.5 F L 65 20 138/74 95 03/19/18 08:48 03/19/18 08:48 03/19/18 08:48 03/19/18 08:48 03/19/18 08:48 - Medications Medications: Current Medications Albuterol/Ipratropium (Duoneb 3 Mg/0.5 Mg (3 Ml) Ud) 3 ml INH RQ6 [facility] Last Admin: 03/19/18 07:35 Dose: 3 ml Aspirin (Aspirin Chewable) 81 mg PO DAILY [facility] Last Admin: 03/19/18 10:16 Dose: 81 mg Clopidogrel Bisulfate (Plavix) 75 mg PO DAILY [facility] Last Admin: 03/19/18 10:16 Dose: 75 mg Enoxaparin Sodium (Lovenox) 30 mg SC DAILY [facility] Last Admin: 03/19/18 10:20 Dose: 30 mg Home Med (Linagliptin [Tradjenta]) 5 mg PO DAILY [facility] Home Med (Meloxicam [Mobic]) 15 mg PO DAILY [facility] Ceftriaxone Sodium 1 gm/ (Sodium Chloride) 100 mls @ 100 mls/hr IVPB DAILY [facility] Last Admin: 03/19/18 10:21 Dose: 100 mls/hr Azithromycin 500 mg/ Sodium (Chloride) 250 mls @ 250 mls/hr IVPB Q24H [facility] PRN Reason: Protocol Last Admin: 03/18/18 23:07 Dose: 250 mls/hr Insulin Aspart (Novolog) 0 unit SC ACHS [facility] PRN Reason: Protocol Last Admin: 03/19/18 08:12 Dose: 1 unit Pantoprazole Sodium (Protonix Ec Tab) 40 mg PO DAILY [facility] Last Admin: 03/19/18 10:16 Dose: 40 mg Repaglinide (Prandin) 1 mg PO TID [facility] Last Admin: 03/19/18 10:17 Dose: 1 mg - Labs Labs: 03/18/18 10:12 03/18/18 08:23 PT 12.3 SECONDS (9.7-12.2) H 03/16/18 16:40 INR 1.1 03/16/18 16:40 APTT 23 SECONDS (21-34) 03/16/18 16:40 - Constitutional Appears: Non-toxic, No Acute Distress - Head Exam Head Exam: ATRAUMATIC - ENT Exam ENT Exam: Mucous Membranes Moist - Respiratory Exam Respiratory Exam: Clear to Ausculation Bilateral. absent: Accessory Muscle Use , Rales, Rhonchi, Wheezes, Respiratory Distress - Cardiovascular Exam Cardiovascular Exam: REGULAR RHYTHM, +S1, +S2. absent: Gallop, Rubs, Murmur - GI/Abdominal Exam GI & Abdominal Exam: Soft, Normal Bowel Sounds. absent: Distended, Firm, Guarding, Rigid, Tenderness, Organomegaly - Extremities Exam Extremities Exam: absent: Pedal Edema, Tenderness - Neurological Exam Neurological Exam: Alert, Awake, Oriented x3 - Psychiatric Exam Psychiatric exam: Normal Affect, Normal Mood - Skin Skin Exam: Dry, Intact, Normal Color, Warm Assessment and Plan - Assessment and Plan (Free Text) Assessment: COPD exacerbation improved Duonebs prn Zithromax (started 03/16) and Ceftriaxone IVPB (started 03/17). monitor 02 saturation Pulmonology, Dr. Null consulted, help appreciated CAD s/p PCI 2011 ASA 81 mg PO daily Plavix 75mg PO daily Trop mildly elevated on admission Dr. Jerry consulted, help appreciated. Per cardio, pt stable for discharge home. HTN prn meds BP controlled Elevated Ddimer VQ scan low probability of PE Dopplers negative DM ISS Accuchecks Prandin 1mg PO TID Linagliptin 5mg PO daily Hypokalemia BMP and Mg pending this am CKD Cr 1.4 GFR 49 Prophylaxis SCDs Lovenox 30mg SC daily Protonix 40mg PO daily All management and orders per Dr. Amrita Constantino. Patient stable for discharge per Dr. Constantino Patient is to follow up with PMD upon discharge. Patient is to follow up with inserter operator upon discharge. Referral provided to patient for Dr. Jackson Jerry Patient is to continue taking home medications as prescribed. Patient will also be discharged with Zithromax 500 mg po QD #1 tab. If symptoms worsen, please return to ED. Patient is also given copy of all of his blood work.
[2018-03-19 13:49] LABS: HEMOGLOBIN 11.6 g/dL (12.0-18.0); MEAN CORPUSCULAR HEMOGLOBIN 25.5 pg (27.0-31.0); MEAN CORPUSCULAR HGB CONC 33.9 g/dL (33.0-37.0); MEAN PLATELET VOLUME 8.4 fL (7.2-11.7); RBC 4.57 Mil/uL (4.40-5.90); RED CELL DISTRIBUTION WIDTH 19.3 % (11.5-14.5); WHITE BLOOD COUNT 6.9 K/uL (4.8-10.8)
--- NOTE | 2018-03-19 14:08 | CP.PCM.PN ---
Subjective - Date & Time of Evaluation Date of Evaluation: 03/19/18 Time of Evaluation: 14:05 - Subjective Subjective: PT FEELS BETTER. LESS COUGH., NO SPUTUM., NO SOB NO CP. ROS; OTHERWISE NEG Objective - Vital Signs/Intake and Output Vital Signs (last 24 hours): Temp Pulse Resp BP Pulse Ox 97.5 F L 65 20 138/74 95 03/19/18 08:48 03/19/18 08:48 03/19/18 08:48 03/19/18 08:48 03/19/18 08:48 - Medications Medications: Current Medications Albuterol/Ipratropium (Duoneb 3 Mg/0.5 Mg (3 Ml) Ud) 3 ml INH RQ6 [facility] Last Admin: 03/19/18 13:39 Dose: 3 ml Aspirin (Aspirin Chewable) 81 mg PO DAILY [facility] Last Admin: 03/19/18 10:16 Dose: 81 mg Clopidogrel Bisulfate (Plavix) 75 mg PO DAILY [facility] Last Admin: 03/19/18 10:16 Dose: 75 mg Enoxaparin Sodium (Lovenox) 30 mg SC DAILY [facility] Last Admin: 03/19/18 10:20 Dose: 30 mg Home Med (Linagliptin [Tradjenta]) 5 mg PO DAILY [facility] Home Med (Meloxicam [Mobic]) 15 mg PO DAILY [facility] Ceftriaxone Sodium 1 gm/ (Sodium Chloride) 100 mls @ 100 mls/hr IVPB DAILY [facility] Last Admin: 03/19/18 10:21 Dose: 100 mls/hr Azithromycin 500 mg/ Sodium (Chloride) 250 mls @ 250 mls/hr IVPB Q24H [facility] PRN Reason: Protocol Last Admin: 03/18/18 23:07 Dose: 250 mls/hr Insulin Aspart (Novolog) 0 unit SC ACHS [facility] PRN Reason: Protocol Last Admin: 03/19/18 12:06 Dose: 3 unit Pantoprazole Sodium (Protonix Ec Tab) 40 mg PO DAILY [facility] Last Admin: 03/19/18 10:16 Dose: 40 mg Repaglinide (Prandin) 1 mg PO TID [facility] Last Admin: 03/19/18 13:54 Dose: 1 mg - Labs Labs: 03/19/18 13:40 03/18/18 08:23 PT 12.3 SECONDS (9.7-12.2) H 03/16/18 16:40 INR 1.1 03/16/18 16:40 APTT 23 SECONDS (21-34) 03/16/18 16:40 - Constitutional Appears: Non-toxic, No Acute Distress - Head Exam Head Exam: ATRAUMATIC, NORMOCEPHALIC - Eye Exam Eye Exam: EOMI, Normal appearance - ENT Exam ENT Exam: Mucous Membranes Moist - Neck Exam Neck Exam: Full ROM - Respiratory Exam Respiratory Exam: Decreased Breath Sounds. absent: Accessory Muscle Use, Wheezes, Respiratory Distress - Cardiovascular Exam Cardiovascular Exam: +S1, +S2 - GI/Abdominal Exam GI & Abdominal Exam: Soft. absent: Tenderness Additional comments: OBESE - Rectal Exam Rectal Exam: Deferred - Extremities Exam Extremities Exam: absent: Calf Tenderness, Pedal Edema - Back Exam Back Exam: absent: CVA tenderness (L), CVA tenderness (R) - Neurological Exam Neurological Exam: Alert, Awake, CN II-XII Intact, Oriented x3 - Psychiatric Exam Psychiatric exam: Normal Mood - Skin Skin Exam: absent: Rash Assessment and Plan (1) Acute kidney failure Status: Acute (2) Hyperlipidemia Status: Acute (3) CAD (coronary artery disease) Status: Acute (4) HTN (hypertension) Status: Acute (5) Shortness of breath Status: Acute (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 MONITOR O2 SAT ON ROOM AIR. INCREASE OOB AND AMBULATION., DISCUSSED WITH STAFF.
[2018-03-19 14:09] LABS: BLOOD UREA NITROGEN 15 mg/dL (9-20); CALCIUM 8.7 mg/dl (8.6-10.4); GFR AFRICAN-AMERICAN > 60; GFR NON-AFRICAN AMERICAN 58
== END 2018-03-19 16:28 | disposition home or self-care (01) | DRG 191 ==
LOC: C.ER 15:42 → C.6T 17:24 → C.9E 17:24
PROVIDERS: ADMIT Internal Medicine Nephrology; ATTEND Internal Medicine Nephrology
DX: J44.1 Chronic obstructive pulmonary disease with (acute) exacerbation (principal); N17.9 Acute kidney failure, unspecified; E78.5 Hyperlipidemia, unspecified; E11.22 Type 2 diabetes mellitus with diabetic chronic kidney disease; E87.6 Hypokalemia; G47.33 Obstructive sleep apnea (adult) (pediatric); Z95.5 Presence of coronary angioplasty implant and graft; N18.9 Chronic kidney disease, unspecified; I25.10 Atherosclerotic heart disease of native coronary artery without angina pectoris; I12.9 Hypertensive chronic kidney disease with stage 1 through stage 4 chronic kidney disease, or unspecified chronic kidney disease